=== PATIENT | male | born 1985 | race Caucasian/White ===

== ENCOUNTER 2016-08-12 17:35 | Emergency (ER) | payer SELFPAY ==
--- NOTE | ~2016-08-12 | ER ---
PATIENT'S NAME: JOSE OZUNA [facility] AGE: 31 Y [address] ROOM: [place] [address] LOCATION: [facility] ADMIT DATE: 08/12/2016 ER/Outpatient Report DISCHARGE DATE: 08/12/2016 FAMILY PHYSICIAN: Dakota Null ATTENDING PHYSICIAN: Brielle Welch ADDENDUM: ADMIT TIME: 1735 hours. ADDENDUM: Jose is a 31-year-old male presents to the emergency room with back pain. He was seen initially by Esther Ivey APRN, JOSE RAUL, was ordered a CT of the thoracic and lumbar spine, had received [place] prior to my arrival. I did receive report, the patient reports the Toradol and pain medications did help some. The patient was monitored during this time, we did review over the CT results, per Dr. Carlson, radiologist, per verbal report. He does report he has extensive degenerative changes throughout his thoracic and lumbar spine particularly someone for his age. He has some foraminal stenosis and also to the T9 and T10 there is some disk protrusion on the left-side also and to the L5 and S1. The patient is experiencing some radiculopathy to that lower left leg. There is no evidence of acute or compression fracture. This verbal report was reviewed with the patient. The patient does report that 4 months ago he did have an MRI of his back and it showed degenerative disk disease with some arthritis. He has been following up with a provider in [place] PA-C. The patient is currently prescribed [place] 5/325 1 p.o. b.i.d., #60, in which he gets these refilled monthly. He is currently out in which he can not have these refills until . He also has some Flexeril he is using at home. Assessment: 1. Chronic Back pain 2. Radiculopathy 3. Muscle spasms of back I did spend about 10-15 minutes with the patient exploring different options, he is self-pay, and appears that they have talked about physical therapy and/or an epidural, but this is too expensive for the patient. Also, it sounds like they have consulted with a back specialist. At this time, the patient is neurologically intact, he is aware of the red flags of any onset of neurologic deficits. The patient will not receive any further narcotics from us as a take-home script as he will need to get this from [place] Null PA-C in [place] this with his upcoming appointment. I do feel he is having probably some muscle spasms, I did write a script for Valium 2 mg, 1 p.o. every 6 hours p.r.n. muscle spasms, #15 with no refills. He knows he is not to take this at the same time as his cyclobenzaprine. He has used this in the past and this has been helpful. We then explored the use of a taper of some prednisone, but he reports he has done this and this has not been very helpful. The patient is very realistic with his prognosis and knows this will be a chronic issue for him through his life and pain management may be the best option for him. The patient plans to discuss this with his PATIENT'S NAME: JOSE OZUNA [facility] AGE: 31 Y [address] ROOM: [place] [address] LOCATION: [facility] ADMIT DATE: 08/12/2016 ER/Outpatient Report DISCHARGE DATE: 08/12/2016 FAMILY PHYSICIAN: Dakota Null ATTENDING PHYSICIAN: Brielle Welch primary care provider, condition is stable, no further questions. GAGE DALTON APRN FOR MD OCTAVIA BECKFORD/lila /[id number] d: 08/13/16 0042 t: 09/07/16 1825, OUTPATIENT REPORT
--- NOTE | ~2016-08-12 | ER ---
PATIENT'S NAME: MARÍA OZUNA [facility] AGE: 31 Y [address] ROOM: [place] [address] LOCATION: [facility] ADMIT DATE: 08/12/2016 ER/Outpatient Report DISCHARGE DATE: 08/12/2016 FAMILY PHYSICIAN: Dakota Null ATTENDING PHYSICIAN: Brielle Welch Time of Arrival: 1740. Time of Exam: 1740. CHIEF COMPLAINT: Back pain. HISTORY OF PRESENT ILLNESS: The patient states about 1 o'clock today while he was at work, he was carrying a cast iron skillet and he felt a pop in his mid back. States that it has been painful the whole time. States that it starts at the mid back and goes down. Denies having any numbness or tingling of his legs. Describes the pain is constant with intermittent spasms. States he did take a Flexeril, but has not taken any of his pain pills. Reports he has [place] at home. MANISH DE LEON APRN FOR MD MARKUS JACOBO/lila /[id number] d: 08/12/16 2332 t: 08/16/16 1341, OUTPATIENT REPORT
--- NOTE | ~2016-08-12 | ER ---
PATIENT'S NAME: SULMA [facility] AGE: 31 Y [address] ROOM: [place] [address] [address]: [facility] ADMIT DATE: 08/12/2016 ER/Outpatient Report DISCHARGE DATE: 08/12/2016 FAMILY PHYSICIAN: Dakota Null ATTENDING PHYSICIAN: Brielle Welch He denies any other injury with this occurrence. ALLERGIES: CODEINE. MEDICATIONS: He states he has [place] and Flexeril that he takes for chronic back pain. PAST MEDICAL HISTORY: Chronic back pain. Reports he has degenerative back problems. PAST SURGERIES: Negative. SOCIAL HISTORY: He smokes a pack per day and has for the last 10 years. Denies use of drugs or alcohol. REVIEW OF SYSTEMS: All negative other than those mentioned in the HPI. He states he is 6 feet 3 inches. PHYSICAL EXAMINATION: VITAL SIGNS: He weighs 193.4 kg. Blood pressure is 175/79, pulse of 96, respirations 18, temperature of 98.9, O2 saturation is 96% on room air. GENERAL: He is awake, alert, and oriented x4. SKIN: Jet, warm, and dry. LUNGS: Respirations are even and nonlabored. Lung sounds are clear throughout. HEART: Regular rate and rhythm. EXTREMITIES: He walks in with a steady even gait. Moves all extremities strongly and equally. He is tender to palpate at the mid thoracic down to the lower lumbar area. EMERGENCY ROOM COURSE: The patient was given [place] 5/325 x2 tablets and a shot of Toradol 60 mg IM. He is to have a CT scan of the thoracic and lumbar area. Report was given to Kasey Phipps, who will take over the patient's care at change of shift. PATIENT'S NAME: OZUNA, [facility] AGE: 31 Y [address] ROOM: [place] [address] [address]: [facility] ADMIT DATE: 08/12/2016 ER/Outpatient Report DISCHARGE DATE: 08/12/2016 FAMILY PHYSICIAN: Dakota Null ATTENDING PHYSICIAN: Brielle Welch MANISH DE LEON APRN FOR MD MARKUS JACOBO/lila /[id number] d: 08/12/16 2333 t: 08/16/16 1344, OUTPATIENT REPORT
== END 2016-08-12 19:09 | disposition disaster alternative care site (69) ==
LOC: GACC 17:35
DX: M51.14 Intervertebral disc disorders with radiculopathy, thoracic region (principal); M51.17 Intervertebral disc disorders with radiculopathy, lumbosacral region
CPT/HCPCS: J1885